=== PATIENT | male | born 1985 | race Two or more races ===

== ENCOUNTER 2019-02-15 21:06 | Emergency (ER) | payer SELFPAY ==
[~2019-02-15] VITALS: Ht 170.2 cm; Wt 94.4 kg
[2019-02-16] MEDS: SODIUM CHLORIDE 0.9% 1,000 ML IV ONE (00:55)
[2019-02-16] MEDS: MECLIZINE 25MG TABLET PO ONE (01:00)
[2019-02-16 01:35] LABS: CHLORIDE 107 mEq/L (98-107)
[2019-02-16 01:41] LABS: BASOPHILS % 0.9 % (0.0-2.0); EOSINOPHILS % 4.5 % (0.0-5.0); HEMATOCRIT. 45.1 % (42.0-52.0); HEMOGLOBIN. 15.3 g/dL (14.0-18.0); LYMPHOCYTES % 53.2 % (20.0-50.0); MEAN CORPUSCULAR HEMOGLOBIN 29.3 pg (28.0-32.0); MEAN PLATELET VOLUME 9.9 fl (7.4-10.4); MONOCYTES % 6.4 % (2.0-8.0); PLATELET 244 x1000/uL (130-400); RED BLOOD CELL COUNT 5.24 mill/uL (4.7-6.1); RED CELL DISTRIBUTION WIDTH 14.8 % (11.6-14.6)
[2019-02-16 01:44] LABS: T4 FREE 1.16 ng/dL (0.76-1.46)
[2019-02-16 02:36] LABS: CLARITY URINE CLEAR (CLEAR); COLOR URINE YELLOW (YELLOW); KETONES URINE NEGATIVE (NEGATIVE); LEUKOCYTE ESTERASE URINE NEGATIVE (NEGATIVE); NITRITE URINE NEGATIVE (NEGATIVE); OCCULT BLOOD URINE NEGATIVE (NEGATIVE); PH URINE 5.5 (4.5-8.0); PROTEIN URINE NEGATIVE (NEGATIVE); UROBILINOGEN URINE 0.2 E.U./dL (0.2-1.0)
[2019-02-16 04:37] VITALS: BP 117/80
== END 2019-02-16 04:39 | disposition home or self-care (01) ==
LOC: ER 21:06
DX: R42 Dizziness and giddiness (principal); R53.1 Weakness; R51 Headache
CPT/HCPCS: 36415; 71045; 80053; 81003; 82962; 84439; 84443; 85025; 93005; 96360; 96361; 99284; J7030; J8597